=== PATIENT | male | born 1960 | race African-American/Black ===

== ENCOUNTER 2019-10-06 18:05 | Inpatient (IN) ==
[2019-10-06] MEDS ORDERED: ONDANSETRON 4 MG/2 ML VIAL IV ONE (18:27)
[2019-10-06] MEDS ORDERED: ASPIRIN 325 MG TABLET PO STA ×2 (18:27→20:23)
[2019-10-06 18:44] LABS: Basophils % 0.5 % (0.0-0.8); Eosinophils % 0.2 % (0.00-10.9); Hematocrit 43.1 VOL% (42.0-52.0); Immature Granulocytes % 0.2 %; Immature Granulocytes Absolute 0.02 #; Lymphocytes # 2.4 10*3/uL (1.4-4.0); Lymphocytes % 27.5 % (21.2-54.2); Mean Corpuscular HGB Conc 32.5 GM/DL (32-36); Mean Platelet Volume 11.7 FL (9.6-12.0); Monocytes % 6.7 % (1.7-12.7); Neutrophils % 64.9 % (38.7-73.9); Platelet Count 342 T/CUMM (130-400); Red Blood Count 5.01 MC/CUMM (3.8-5.5); Red Cell Distribution Width 15.8 % (9.3-17.3); White Blood Count 8.7 T/CUMM (4-12)
[2019-10-06 18:52] LABS: INR 1.1; PT Patient Result 11.4 SECS (9.8-11.9)
[2019-10-06 19:14] LABS: Alanine Aminotransferase 299 U/L (16-61); Albumin 3.5 G/DL (3.4-5.0); Alkaline Phosphatase 605 U/L (45-117); Aspartate Amino Transferase 135 U/L (0-37); Blood Urea Nitrogen 17 MG/DL (7-18); Calcium 10.1 MG/DL (8.5-10.1); Estimated Glom Filtration Rate 93 ML/MIN; Glucose 219 MG/DL (74-106); Total Protein 9.1 G/DL (6.4-8.3)
[2019-10-06 19:15] LABS: Troponin I 0.062 NG/ML (0.00-0.045)
[2019-10-06 20:09] LABS: Apearance,Urine CLEAR (Clear); Blood, Urine Small mg/dL (Negative); Glucose,Urine (UA) Negative (Negative); Ketones,Urine 20 mg/dL (Negative); Mucus,Urine Occasional /LPF (Occasional); Nitrite,Urine Negative (Negative); Protein,Urine 30 MG/DL; RBC,Urine 63 /HPF (0-4); Squamous Epithelial Cell,Urine Occasional /HPF (0-10); Urine Color Amber (Yellow); Urine Specific Gravity 1.053 (1.001-1.035); WBC,Urine 4 /HPF (0-6)
[2019-10-06 20:10] LABS: Bilirubin,Urine Small mg/dL (Negative)
[2019-10-07] MEDS ORDERED: POTASSIUM CHLORIDE RIDER 10 MEQ in PREMIX 1 EACH IV PRN (00:10)
[2019-10-07] MEDS ORDERED: GLUCAGON 1 MG VIAL IM PRN (00:10)
[2019-10-07] MEDS ORDERED: DOCUSATE SODIUM 100 MG CAPSULE PO PRN (00:10)
[2019-10-07] MEDS ORDERED: HYDROmorphone 2 MG/1 ML VIAL IV PRN (00:10)
[2019-10-07] MEDS ORDERED: SODIUM CHLORIDE 0.9% 1,000 ML IV SCH (00:10)
[2019-10-07] MEDS ORDERED: DEXTROSE 10% 250 ML BAG IV PRN (00:12)
[2019-10-07] MEDS: POTASSIUM CHLORIDE INJ 40 MEQ in SODIUM CHLORIDE 0.9% 1,000 ML IV SCH ×2 (03:34→20:15)
[2019-10-07 04:31] LABS: Basophils % 0.4 % (0.0-0.8); Eosinophils # 0.1 10*3/uL (0.0-0.87); Eosinophils % 0.7 % (0.00-10.9); Hematocrit 38.7 VOL% (42.0-52.0); Hemoglobin 12.2 GM/DL (14.0-18.0); Immature Granulocytes % 0.3 %; Immature Granulocytes Absolute 0.02 #; Lymphocytes # 2.3 10*3/uL (1.4-4.0); Lymphocytes % 30.2 % (21.2-54.2); Mean Corpuscular HGB Conc 31.5 GM/DL (32-36); Mean Corpuscular Volume 88.2 FL (87-102); Mean Platelet Volume 11.4 FL (9.6-12.0); Monocytes % 11.3 % (1.7-12.7); Neutrophils % 57.1 % (38.7-73.9); Platelet Count 281 T/CUMM (130-400); Red Blood Count 4.39 MC/CUMM (3.8-5.5); Red Cell Distribution Width 15.9 % (9.3-17.3); White Blood Count 7.6 T/CUMM (4-12)
[2019-10-07] MEDS: hydrALAZINE 20 MG/1 ML VIAL IV PRN (04:39)
[2019-10-07] MEDS: ONDANSETRON 4 MG/2 ML VIAL IV PRN ×2 (04:47→20:15)
[2019-10-07 04:55] LABS: Albumin 2.9 G/DL (3.4-5.0); Bilirubin,Total 2.2 MG/DL (0.2-1.0); Calcium 9.4 MG/DL (8.5-10.1); Osmolality,Calculated 277.1 MOS/KG (273-304); Total Protein 7.8 G/DL (6.4-8.3)
[2019-10-07 05:46] LABS: Carcinoembryonic Antigen 0.7 NG/ML (0.0-5.0)
[2019-10-07 05:49] LABS: Risk Ratio 4.93; VLDL CHOLESTEROL 28.6 MG/DL
[2019-10-07] MEDS: INSULIN LISPRO 100 UNIT/ML SUBCUT SCH ×4 (08:25→20:59)
[2019-10-08 06:05] LABS: Basophils % 0.2 % (0.0-0.8); Eosinophils % 0.3 % (0.00-10.9); Hematocrit 38.6 VOL% (42.0-52.0); Hemoglobin 12.4 GM/DL (14.0-18.0); Immature Granulocytes % 0.2 %; Immature Granulocytes Absolute 0.02 #; Lymphocytes # 1.6 10*3/uL (1.4-4.0); Lymphocytes % 16.3 % (21.2-54.2); Mean Corpuscular HGB Conc 32.1 GM/DL (32-36); Mean Corpuscular Volume 86.7 FL (87-102); Mean Platelet Volume 12.3 FL (9.6-12.0); Monocytes % 6.3 % (1.7-12.7); Neutrophils % 76.7 % (38.7-73.9); Platelet Count 266 T/CUMM (130-400); Red Blood Count 4.45 MC/CUMM (3.8-5.5); Red Cell Distribution Width 15.8 % (9.3-17.3); White Blood Count 9.9 T/CUMM (4-12)
[2019-10-08 06:12] LABS: PT Patient Result 11.2 SECS (9.8-11.9)
[2019-10-08 06:29] LABS: Albumin 2.8 G/DL (3.4-5.0); Bilirubin,Total 3.2 MG/DL (0.2-1.0); Calcium 9.1 MG/DL (8.5-10.1); Osmolality,Calculated 271.2 MOS/KG (273-304); Total Protein 7.8 G/DL (6.4-8.3)
[2019-10-08] MEDS: INSULIN LISPRO 100 UNIT/ML SUBCUT SCH ×4 (07:58→21:25)
[2019-10-08] MEDS ORDERED: LACTATED RINGERS 1,000 ML IV SCH (08:00)
[2019-10-08] MEDS ORDERED: INDOMETHACIN SUPP 50 MG SUPP RECTAL ONE ×2 (08:00→12:07)
[2019-10-08] MEDS ORDERED: propofoL 200 MG/20 ML VIAL IV ONE (10:00)
[2019-10-08] MEDS ORDERED: LIDOCAINE 2% 5 ML VIAL ONE (10:00)
[2019-10-08] MEDS ORDERED: PHENYLEPHRINE 1 MG/10 ML SYRINGE IV ONE (10:00)
[2019-10-08] MEDS ORDERED: MAGNESIUM CITRATE 300 ML BOTTLE PO ONE (10:40)
[2019-10-08] MEDS ORDERED: SUCCINYLCHOLINE 200 MG/10 ML VIAL ONE (12:50)
[2019-10-08] MEDS ORDERED: ROCURONIUM 100 MG/10 ML VIAL IV ONE (12:50)
[2019-10-08] MEDS ORDERED: MIDAZOLAM 2 MG/2 ML VIAL ONE (12:50)
[2019-10-08] MEDS ORDERED: fentaNYL 100 MCG/2 ML VIAL ONE (12:50)
[2019-10-08] MEDS ORDERED: SEVOFLURANE 1 UNIT/15 MINUTE INH ONE (14:02)
[2019-10-08] MEDS: SODIUM CHLOR 0.9% KCL 40 MEQ 40 MEQ/1,000 ML BAG IV SCH (16:09)
[2019-10-08] MEDS: hydrALAZINE 20 MG/1 ML VIAL IV PRN (17:48)
[2019-10-09 05:48] LABS: Basophils % 0.1 % (0.0-0.8); Eosinophils # 0.1 10*3/uL (0.0-0.87); Eosinophils % 1.1 % (0.00-10.9); Hematocrit 38.3 VOL% (42.0-52.0); Hemoglobin 12.1 GM/DL (14.0-18.0); Immature Granulocytes % 0.4 %; Immature Granulocytes Absolute 0.03 #; Mean Corpuscular HGB Conc 31.6 GM/DL (32-36); Mean Corpuscular Volume 89.1 FL (87-102); Mean Platelet Volume 11.8 FL (9.6-12.0); Monocytes % 7.7 % (1.7-12.7); Neutrophils % 63.7 % (38.7-73.9); Platelet Count 255 T/CUMM (130-400); Red Cell Distribution Width 15.9 % (9.3-17.3); White Blood Count 7.4 T/CUMM (4-12)
[2019-10-09 06:07] LABS: Albumin 2.8 G/DL (3.4-5.0); Bilirubin,Total 2.9 MG/DL (0.2-1.0); Calcium 8.8 MG/DL (8.5-10.1); Osmolality,Calculated 275.7 MOS/KG (273-304); Total Protein 7.8 G/DL (6.4-8.3)
[2019-10-09] MEDS: SODIUM CHLOR 0.9% KCL 40 MEQ 40 MEQ/1,000 ML BAG IV SCH ×2 (06:07→22:16)
[2019-10-09] MEDS: INSULIN LISPRO 100 UNIT/ML SUBCUT SCH ×4 (08:19→22:17)
[2019-10-09] MEDS: POTASSIUM CHLORIDE RIDER 10 MEQ in PREMIX 1 EACH IV SCH ×4 (15:00→22:18)
[2019-10-09] MEDS ORDERED: cefOXitin 2,000 MG in SYRINGE 1 EACH IV ONE (15:12)
[2019-10-10 05:31] LABS: Basophils % 0.3 % (0.0-0.8); Eosinophils # 0.1 10*3/uL (0.0-0.87); Eosinophils % 1.2 % (0.00-10.9); Hematocrit 37.2 VOL% (42.0-52.0); Hemoglobin 11.7 GM/DL (14.0-18.0); Immature Granulocytes % 0.6 %; Immature Granulocytes Absolute 0.04 #; Lymphocytes # 1.5 10*3/uL (1.4-4.0); Lymphocytes % 20.6 % (21.2-54.2); Mean Corpuscular HGB Conc 31.5 GM/DL (32-36); Mean Corpuscular Volume 89.2 FL (87-102); Mean Platelet Volume 11.5 FL (9.6-12.0); Monocytes % 7.2 % (1.7-12.7); Neutrophils % 70.1 % (38.7-73.9); Platelet Count 243 T/CUMM (130-400); Red Blood Count 4.17 MC/CUMM (3.8-5.5); White Blood Count 7.3 T/CUMM (4-12)
[2019-10-10 06:02] LABS: Albumin 2.6 G/DL (3.4-5.0); Bilirubin,Total 3.9 MG/DL (0.2-1.0); Calcium 8.8 MG/DL (8.5-10.1); Osmolality,Calculated 278.4 MOS/KG (273-304); Total Protein 7.6 G/DL (6.4-8.3)
[2019-10-10] MEDS ORDERED: ALBUMIN 5% 12.5 GM/250 ML VIAL IV ONE (06:29)
[2019-10-10] MEDS ORDERED: ROCURONIUM 100 MG/10 ML VIAL IV ONE (06:29)
[2019-10-10] MEDS: INSULIN LISPRO 100 UNIT/ML SUBCUT SCH ×4 (07:23→21:36)
[2019-10-10] MEDS ORDERED: LACTATED RINGERS 1,000 ML IV SCH (07:30)
[2019-10-10] MEDS ORDERED: TISSUE ADHESIVE 1 EACH APPLICATOR TOP ONE (10:03)
[2019-10-10] MEDS: SODIUM CHLOR 0.9% KCL 40 MEQ 40 MEQ/1,000 ML BAG IV SCH ×2 (10:06→21:37)
[2019-10-10] MEDS ORDERED: HYDROmorphone 2 MG/1 ML VIAL ONE (10:27)
[2019-10-10] MEDS ORDERED: LIDOCAINE 2% 5 ML VIAL ONE (10:27)
[2019-10-10] MEDS ORDERED: DEXAMETHASONE 4 MG/1 ML VIAL ONE (10:27)
[2019-10-10] MEDS ORDERED: fentaNYL 100 MCG/2 ML VIAL ONE (10:27)
[2019-10-10] MEDS ORDERED: ONDANSETRON 4 MG/2 ML VIAL ONE (10:27)
[2019-10-10] MEDS ORDERED: propofoL 200 MG/20 ML VIAL IV ONE (10:27)
[2019-10-10] MEDS ORDERED: LACTATED RINGERS 1,000 ML IV ONE (10:28)
[2019-10-10] MEDS ORDERED: GLYCOPYRROLATE 0.4 MG/2 ML VIAL ONE (10:28)
[2019-10-10] MEDS ORDERED: PHENYLEPHRINE 1 MG/10 ML SYRINGE IV ONE (10:28)
[2019-10-10] MEDS ORDERED: SUCCINYLCHOLINE 200 MG/10 ML VIAL ONE (10:28)
[2019-10-10] MEDS ORDERED: NEOSTIGMINE 10 MG/10 ML VIAL ONE (10:28)
[2019-10-11 05:22] LABS: Basophils % 0.1 % (0.0-0.8); Eosinophils % 0.3 % (0.00-10.9); Hematocrit 36.8 VOL% (42.0-52.0); Hemoglobin 11.9 GM/DL (14.0-18.0); Immature Granulocytes % 0.6 %; Immature Granulocytes Absolute 0.04 #; Lymphocytes # 1.7 10*3/uL (1.4-4.0); Lymphocytes % 24.3 % (21.2-54.2); Mean Corpuscular HGB Conc 32.3 GM/DL (32-36); Mean Corpuscular Volume 87.2 FL (87-102); Mean Platelet Volume 11.5 FL (9.6-12.0); Monocytes % 6.2 % (1.7-12.7); Neutrophils % 68.5 % (38.7-73.9); Platelet Count 240 T/CUMM (130-400); Red Blood Count 4.22 MC/CUMM (3.8-5.5); Red Cell Distribution Width 16.2 % (9.3-17.3); White Blood Count 7.1 T/CUMM (4-12)
[2019-10-11 05:51] LABS: Bilirubin,Total 3.1 MG/DL (0.2-1.0); Calcium 8.7 MG/DL (8.5-10.1); Osmolality,Calculated 273.8 MOS/KG (273-304); Total Protein 7.9 G/DL (6.4-8.3)
[2019-10-11] MEDS: INSULIN LISPRO 100 UNIT/ML SUBCUT SCH ×2 (08:34→12:56)
[2019-10-11] MEDS: SODIUM CHLOR 0.9% KCL 40 MEQ 40 MEQ/1,000 ML BAG IV SCH (11:15)
[2019-10-11] MEDS: hydrALAZINE 20 MG/1 ML VIAL IV PRN (13:20)
[2019-10-12] MEDS: INSULIN LISPRO 100 UNIT/ML SUBCUT SCH ×5 (01:04→22:30)
[2019-10-12] MEDS: SODIUM CHLOR 0.9% KCL 40 MEQ 40 MEQ/1,000 ML BAG IV SCH ×2 (01:05→12:55)
[2019-10-12] MEDS: hydrALAZINE 20 MG/1 ML VIAL IV PRN ×2 (12:45→22:30)
[2019-10-13 03:18] LABS: Basophils % 0.3 % (0.0-0.8); Eosinophils # 0.1 10*3/uL (0.0-0.87); Eosinophils % 0.9 % (0.00-10.9); Hematocrit 34.5 VOL% (42.0-52.0); Hemoglobin 11.2 GM/DL (14.0-18.0); Immature Granulocytes % 0.4 %; Immature Granulocytes Absolute 0.03 #; Lymphocytes # 1.8 10*3/uL (1.4-4.0); Lymphocytes % 27.3 % (21.2-54.2); Mean Corpuscular HGB Conc 32.5 GM/DL (32-36); Mean Corpuscular Volume 87.1 FL (87-102); Mean Platelet Volume 10.9 FL (9.6-12.0); Monocytes % 7.7 % (1.7-12.7); Neutrophils % 63.4 % (38.7-73.9); Platelet Count 236 T/CUMM (130-400); Red Blood Count 3.96 MC/CUMM (3.8-5.5); Red Cell Distribution Width 16.5 % (9.3-17.3); White Blood Count 6.8 T/CUMM (4-12)
[2019-10-13 06:45] LABS: Albumin 2.4 G/DL (3.4-5.0); Calcium 8.6 MG/DL (8.5-10.1); Osmolality,Calculated 268.2 MOS/KG (273-304); Total Protein 7.1 G/DL (6.4-8.3)
[2019-10-13] MEDS: INSULIN LISPRO 100 UNIT/ML SUBCUT SCH ×4 (08:39→21:09)
[2019-10-14 06:20] LABS: Basophils % 0.2 % (0.0-0.8); Eosinophils # 0.1 10*3/uL (0.0-0.87); Hematocrit 32.9 VOL% (42.0-52.0); Hemoglobin 10.9 GM/DL (14.0-18.0); Immature Granulocytes % 0.2 %; Immature Granulocytes Absolute 0.01 #; Lymphocytes # 1.7 10*3/uL (1.4-4.0); Lymphocytes % 32.5 % (21.2-54.2); Mean Corpuscular HGB Conc 33.1 GM/DL (32-36); Mean Corpuscular Volume 86.1 FL (87-102); Mean Platelet Volume 11.8 FL (9.6-12.0); Monocytes % 7.7 % (1.7-12.7); Neutrophils % 57.4 % (38.7-73.9); Platelet Count 218 T/CUMM (130-400); Red Blood Count 3.82 MC/CUMM (3.8-5.5); Red Cell Distribution Width 16.7 % (9.3-17.3); White Blood Count 5.1 T/CUMM (4-12)
[2019-10-14 06:54] LABS: Albumin 2.3 G/DL (3.4-5.0); Bilirubin,Total 5.6 MG/DL (0.2-1.0); Calcium 8.5 MG/DL (8.5-10.1); Osmolality,Calculated 267.2 MOS/KG (273-304); Total Protein 6.7 G/DL (6.4-8.3)
[2019-10-14] MEDS: INSULIN LISPRO 100 UNIT/ML SUBCUT SCH ×4 (07:37→23:07)
[2019-10-14] MEDS ORDERED: fentaNYL 100 MCG/2 ML VIAL IV ONE (12:40)
[2019-10-14] MEDS ORDERED: DIAZEPAM 5 MG TABLET PO ONE (12:40)
[2019-10-14] MEDS ORDERED: MIDAZOLAM 2 MG/2 ML VIAL IV ONE (12:40)
[2019-10-14] MEDS ORDERED: fentaNYL 100 MCG/2 ML VIAL ONE (13:44)
[2019-10-14] MEDS ORDERED: MIDAZOLAM 2 MG/2 ML VIAL ONE (13:45)
[2019-10-14] MEDS ORDERED: ONDANSETRON 4 MG/2 ML VIAL ONE (14:18)
[2019-10-14] MEDS: ONDANSETRON 4 MG/2 ML VIAL IV PRN (14:19)
[2019-10-14] MEDS ORDERED: MORPHINE 4 MG/1 ML VIAL IV PRN (20:08)
[2019-10-15 05:32] LABS: Basophils % 0.1 % (0.0-0.8); Eosinophils % 0.2 % (0.00-10.9); Hematocrit 36.7 VOL% (42.0-52.0); Hemoglobin 12.3 GM/DL (14.0-18.0); Immature Granulocytes % 0.4 %; Immature Granulocytes Absolute 0.04 #; Lymphocytes # 1.1 10*3/uL (1.4-4.0); Lymphocytes % 11.1 % (21.2-54.2); Mean Corpuscular HGB Conc 33.5 GM/DL (32-36); Monocytes % 4.7 % (1.7-12.7); Neutrophils % 83.5 % (38.7-73.9); Platelet Count 259 T/CUMM (130-400); Red Blood Count 4.37 MC/CUMM (3.8-5.5); Red Cell Distribution Width 16.7 % (9.3-17.3); White Blood Count 9.7 T/CUMM (4-12)
[2019-10-15 06:05] LABS: Albumin 2.7 G/DL (3.4-5.0); Bilirubin,Total 2.8 MG/DL (0.2-1.0); Calcium 8.9 MG/DL (8.5-10.1); Osmolality,Calculated 266.5 MOS/KG (273-304); Total Protein 7.9 G/DL (6.4-8.3)
[2019-10-15] MEDS: hydrALAZINE 20 MG/1 ML VIAL IV PRN (09:01)
[2019-10-15] MEDS: INSULIN LISPRO 100 UNIT/ML SUBCUT SCH ×4 (09:01→21:02)
[2019-10-16 06:44] LABS: Basophils % 0.2 % (0.0-0.8); Eosinophils % 0.1 % (0.00-10.9); Hematocrit 41.2 VOL% (42.0-52.0); Hemoglobin 13.4 GM/DL (14.0-18.0); Immature Granulocytes % 0.6 %; Immature Granulocytes Absolute 0.05 #; Lymphocytes # 1.2 10*3/uL (1.4-4.0); Lymphocytes % 14.5 % (21.2-54.2); Mean Corpuscular HGB Conc 32.5 GM/DL (32-36); Mean Corpuscular Volume 87.1 FL (87-102); Mean Platelet Volume 11.4 FL (9.6-12.0); Monocytes % 10.7 % (1.7-12.7); Neutrophils % 73.9 % (38.7-73.9); Platelet Count 285 T/CUMM (130-400); Red Blood Count 4.73 MC/CUMM (3.8-5.5); Red Cell Distribution Width 17.1 % (9.3-17.3); White Blood Count 8.2 T/CUMM (4-12)
[2019-10-16 07:04] LABS: Albumin 2.6 G/DL (3.4-5.0); Bilirubin,Total 2.6 MG/DL (0.2-1.0); Calcium 9.7 MG/DL (8.5-10.1); Osmolality,Calculated 260.9 MOS/KG (273-304); Total Protein 8.7 G/DL (6.4-8.3)
[2019-10-16] MEDS: INSULIN LISPRO 100 UNIT/ML SUBCUT SCH ×4 (09:17→20:50)
[2019-10-17] MEDS: ONDANSETRON 4 MG/2 ML VIAL IV PRN ×2 (02:35→19:47)
[2019-10-17 06:09] LABS: Basophils % 0.1 % (0.0-0.8); Eosinophils % 0.1 % (0.00-10.9); Hematocrit 40.9 VOL% (42.0-52.0); Hemoglobin 13.4 GM/DL (14.0-18.0); Immature Granulocytes % 0.7 %; Immature Granulocytes Absolute 0.08 #; Lymphocytes # 1.3 10*3/uL (1.4-4.0); Lymphocytes % 10.6 % (21.2-54.2); Mean Corpuscular HGB Conc 32.8 GM/DL (32-36); Mean Corpuscular Volume 86.3 FL (87-102); Mean Platelet Volume 11.8 FL (9.6-12.0); Neutrophils % 81.5 % (38.7-73.9); Platelet Count 349 T/CUMM (130-400); Red Blood Count 4.74 MC/CUMM (3.8-5.5); White Blood Count 11.8 T/CUMM (4-12)
[2019-10-17 06:34] LABS: Albumin 2.6 G/DL (3.4-5.0); Bilirubin,Total 2.6 MG/DL (0.2-1.0); Calcium 9.5 MG/DL (8.5-10.1); Osmolality,Calculated 269.8 MOS/KG (273-304); Total Protein 8.7 G/DL (6.4-8.3)
[2019-10-17] MEDS ORDERED: SODIUM CHLORIDE 0.9% 1,000 ML IV SCH (08:30)
[2019-10-17] MEDS: INSULIN LISPRO 100 UNIT/ML SUBCUT SCH ×4 (08:48→20:20)
[2019-10-17] MEDS: DEXTROSE 5% LACTATED RINGERS 1,000 ML IV SCH ×2 (09:57→18:00)
[2019-10-18] MEDS: ONDANSETRON 4 MG/2 ML VIAL IV PRN (02:36)
[2019-10-18] MEDS: DEXTROSE 5% LACTATED RINGERS 1,000 ML IV SCH ×3 (02:39→18:44)
[2019-10-18 06:44] LABS: Basophils % 0.2 % (0.0-0.8); Eosinophils # 0.1 10*3/uL (0.0-0.87); Eosinophils % 0.6 % (0.00-10.9); Hematocrit 39.6 VOL% (42.0-52.0); Hemoglobin 12.4 GM/DL (14.0-18.0); Immature Granulocytes % 0.7 %; Immature Granulocytes Absolute 0.08 #; Lymphocytes # 1.2 10*3/uL (1.4-4.0); Lymphocytes % 10.9 % (21.2-54.2); Mean Corpuscular HGB Conc 31.3 GM/DL (32-36); Mean Corpuscular Volume 88.6 FL (87-102); Mean Platelet Volume 11.6 FL (9.6-12.0); Monocytes % 7.9 % (1.7-12.7); Neutrophils % 79.7 % (38.7-73.9); Platelet Count 327 T/CUMM (130-400); Red Blood Count 4.47 MC/CUMM (3.8-5.5); Red Cell Distribution Width 16.9 % (9.3-17.3); White Blood Count 10.8 T/CUMM (4-12)
[2019-10-18 07:05] LABS: Calcium 9.3 MG/DL (8.5-10.1); Osmolality,Calculated 277.4 MOS/KG (273-304)
[2019-10-18] MEDS: INSULIN LISPRO 100 UNIT/ML SUBCUT SCH ×4 (11:11→21:02)
[2019-10-18] MEDS ORDERED: chlorproMAZINE INJ 25 MG in SODIUM CHLORIDE 0.9% 100 ML IV PRN (15:01)
[2019-10-18] MEDS: hydrALAZINE 20 MG/1 ML VIAL IV PRN (20:59)
[2019-10-19] MEDS: DEXTROSE 5% LACTATED RINGERS 1,000 ML IV SCH ×3 (03:03→20:00)
[2019-10-19 05:08] LABS: Basophils % 0.3 % (0.0-0.8); Eosinophils # 0.2 10*3/uL (0.0-0.87); Eosinophils % 1.7 % (0.00-10.9); Hematocrit 35.5 VOL% (42.0-52.0); Hemoglobin 11.5 GM/DL (14.0-18.0); Immature Granulocytes % 0.5 %; Immature Granulocytes Absolute 0.05 #; Lymphocytes # 1.3 10*3/uL (1.4-4.0); Mean Corpuscular HGB Conc 32.4 GM/DL (32-36); Mean Corpuscular Volume 87.9 FL (87-102); Mean Platelet Volume 11.2 FL (9.6-12.0); Monocytes % 8.7 % (1.7-12.7); Neutrophils % 74.8 % (38.7-73.9); Platelet Count 316 T/CUMM (130-400); Red Blood Count 4.04 MC/CUMM (3.8-5.5); Red Cell Distribution Width 16.4 % (9.3-17.3); White Blood Count 9.5 T/CUMM (4-12)
[2019-10-19 06:03] LABS: Albumin 2.2 G/DL (3.4-5.0); Calcium 8.7 MG/DL (8.5-10.1); Total Protein 7.5 G/DL (6.4-8.3)
[2019-10-19] MEDS: INSULIN LISPRO 100 UNIT/ML SUBCUT SCH ×4 (10:12→21:26)
[2019-10-20] MEDS: DEXTROSE 5% LACTATED RINGERS 1,000 ML IV SCH (06:23)
[2019-10-20 06:34] LABS: Basophils % 0.4 % (0.0-0.8); Eosinophils # 0.2 10*3/uL (0.0-0.87); Eosinophils % 2.7 % (0.00-10.9); Hematocrit 32.9 VOL% (42.0-52.0); Hemoglobin 10.5 GM/DL (14.0-18.0); Immature Granulocytes % 0.8 %; Immature Granulocytes Absolute 0.06 #; Lymphocytes # 1.5 10*3/uL (1.4-4.0); Lymphocytes % 20.2 % (21.2-54.2); Mean Corpuscular HGB Conc 31.9 GM/DL (32-36); Mean Corpuscular Volume 89.2 FL (87-102); Monocytes % 7.9 % (1.7-12.7); Platelet Count 275 T/CUMM (130-400); Red Blood Count 3.69 MC/CUMM (3.8-5.5); Red Cell Distribution Width 15.9 % (9.3-17.3); White Blood Count 7.5 T/CUMM (4-12)
[2019-10-20 07:10] LABS: Calcium 8.8 MG/DL (8.5-10.1); Osmolality,Calculated 270.4 MOS/KG (273-304)
[2019-10-20] MEDS: INSULIN LISPRO 100 UNIT/ML SUBCUT SCH ×4 (08:08→21:03)
[2019-10-20] MEDS ORDERED: FUROSEMIDE 20 MG/2 ML VIAL IV ONE (09:50)
[2019-10-21 06:13] LABS: Albumin 2.3 G/DL (3.4-5.0); Bilirubin,Total 1.6 MG/DL (0.2-1.0); Calcium 8.7 MG/DL (8.5-10.1); Osmolality,Calculated 265.5 MOS/KG (273-304); Total Protein 7.5 G/DL (6.4-8.3)
[2019-10-21] MEDS ORDERED: FUROSEMIDE 20 MG/2 ML VIAL IV ONE (08:46)
[2019-10-21] MEDS: INSULIN LISPRO 100 UNIT/ML SUBCUT SCH ×2 (09:28→13:31)
[2019-10-21 12:47] VITALS: BP 126/75
== END 2019-10-21 15:14 | disposition home or self-care (01) | DRG 435 ==
LOC: N.ED 18:05 → N.EDINP 22:04 → SUATTDRO 22:04 → N.TELEN 22:36
PROVIDERS: ADMIT Internal Medicine; ATTEND Internal Medicine

== ENCOUNTER 2020-02-21 07:21 | Observation (INO) ==
[2020-02-21 08:20] LABS: Basophils # 0.1 10*3/uL (0.0-0.2); Basophils % 0.4 % (0.0-0.8); Eosinophils % 0.1 % (0.00-10.9); Hematocrit 32.9 VOL% (42.0-52.0); Hemoglobin 10.6 GM/DL (14.0-18.0); Immature Granulocytes Absolute 0.87 #; Lymphocytes # 1.8 10*3/uL (1.4-4.0); Lymphocytes % 10.1 % (21.2-54.2); Mean Corpuscular HGB Conc 32.2 GM/DL (32-36); Mean Corpuscular Volume 88.9 FL (87-102); Mean Platelet Volume 10.1 FL (9.6-12.0); Monocytes % 6.6 % (1.7-12.7); NRBC # 0.04 10*3/uL; Neutrophils % 77.8 % (38.7-73.9); Platelet Count 299 T/CUMM (130-400); Red Cell Distribution Width 16.6 % (9.3-17.3); White Blood Count 17.5 T/CUMM (4-12)
[2020-02-21 08:36] LABS: Albumin 2.6 G/DL (3.4-5.0); Calcium 8.7 MG/DL (8.5-10.1); Osmolality,Calculated 265.2 MOS/KG (273-304); Total Protein 7.6 G/DL (6.4-8.3)
[2020-02-21 08:45] LABS: Band Neutrophils 5 % (0-10); Lymphocytes 17 % (20-55); Myelocytes 2 %; Segmented Neutrophils 73 % (50-85); Total Cells Counted 100
[2020-02-21 08:46] LABS: Hypochromasia 1+; Microcytosis 1+; Platelet Estimate Normal
[2020-02-21] MEDS ORDERED: ONDANSETRON 4 MG/2 ML VIAL IV PRN (08:51)
[2020-02-21] MEDS ORDERED: DEXTROSE 50% 25 GM/50 ML VIAL IV PRN (08:51)
[2020-02-21] MEDS ORDERED: GLUCAGON 1 MG VIAL IM PRN (08:51)
[2020-02-21] MEDS ORDERED: MORPHINE 4 MG/1 ML VIAL IV PRN (08:51)
[2020-02-21] MEDS ORDERED: ACETAMINOPHEN 325 MG TABLET PO PRN (08:51)
[2020-02-21] MEDS ORDERED: PIPERACILLIN/TAZOBACTAM 3,375 MG in SODIUM CHLORIDE 0.9% 100 ML IV SCH (09:00)
[2020-02-21] MEDS ORDERED: SODIUM CHLORIDE 0.9% 1,000 ML IV SCH (09:00)
[2020-02-21] MEDS ORDERED: PANTOPRAZOLE 40 MG TABLET PO SCH (09:00)
[2020-02-21] MEDS ORDERED: SODIUM CHLORIDE 0.9% 100 ML IV ONE (09:08)
[2020-02-21] MEDS ORDERED: PIPERACILLIN/TAZOBACTAM 3,375 MG VIAL IV ONE (09:08)
[2020-02-21] MEDS ORDERED: MIDAZOLAM 2 MG/2 ML VIAL IV ONE (10:18)
[2020-02-21] MEDS ORDERED: fentaNYL 100 MCG/2 ML VIAL IV ONE (10:18)
[2020-02-21] MEDS ORDERED: DIAZEPAM 5 MG TABLET PO ONE (10:18)
[2020-02-21] MEDS ORDERED: MIDAZOLAM 2 MG/2 ML VIAL ONE (11:03)
[2020-02-21] MEDS ORDERED: fentaNYL 100 MCG/2 ML VIAL ONE (11:03)
[2020-02-21] MEDS ORDERED: INSULIN REGULAR 100 UNIT/ML SUBCUT SCH (11:30)
[2020-02-21] MEDS ORDERED: MAGNESIUM CITRATE 300 ML BOTTLE ONE (13:37)
[2020-02-21 13:39] VITALS: BP 132/89
== END 2020-02-21 13:16 | disposition home or self-care (01) ==
LOC: N.EDINP 07:21 → N.ED 07:21 → SUATTDRO 08:51 → N.EDINP 13:15
PROVIDERS: ADMIT Internal Medicine; ATTEND Internal Medicine